=== PATIENT | male | born 1990 | race Caucasian/White ===

== ENCOUNTER 2019-12-07 14:47 | Outpatient (CLI) | payer BC, SELFPAY ==
--- NOTE | 2019-12-07 15:06 | ECHO_ITS ---
Patient Info Name: Doc Brambila Age: 29 years : 1990 Gender: Male Ht: 69 in Wt: 206 lbs BSA: 2.16 m2 HR: 70 bpm BP: 168 / 99 mmHg Technical Quality: Good Exam Date: 12/07/2019 3:12 PM Exam Location: [facility] Patient Status: Outpatient Admit Date: 12/07/2019 Staff Ordering Physician: Paty Salas NP Licensed [employer]al[employer] Supervisor: Doc Lovell RDCS Attending Provider: Paty Salas NP Referring Physician: Maritza TINEO; Exam Type: CA echo doppler color flow Study Info Indications I10 - Essential (primary) hypertension Complete two-dimensional, color flow and Doppler transthoracic echocardiogram is performed. Strain analysis performed. History/Risk Factors Hypertension. Summary 1. Left ventricular chamber dimension is normal. 2. Left ventricular systolic function is normal, estimated at 60-65%. 3. The left ventricular diastolic function is grade I diastolic dysfunction. 4. E/e' 5 is not elevated. 5. Global longitudinal strain is abnormal at -15.3%. 6. Left atrial chamber dimension is moderately enlarged. 7. No pulmonary hypertension, estimated pulmonary arterial systolic pressure is 26 mmHg. Left Ventricle E/e' 5 is not elevated. Global longitudinal strain is abnormal at -15.3%. Left ventricular chamber dimension is normal. Left ventricular systolic function is normal, estimated at 60-65%. The left ventricular diastolic function is grade I diastolic dysfunction. Right Ventricle Right ventricular chamber dimension is normal. Right ventricular systolic function is normal. Left Atria Left atrial chamber dimension is moderately enlarged. Right Atria Right atrial chamber dimension is normal. Aortic Valve The aortic valve is trileaflet. There is no aortic valve stenosis. There is no aortic valve regurgitation. Pulmonic Valve There is no pulmonic regurgitation. Mitral Valve There is no mitral valve stenosis. There is no mitral valve regurgitation. Tricuspid Valve There is no tricuspid valve regurgitation. No pulmonary hypertension, estimated pulmonary arterial systolic pressure is 26 mmHg. Pericardium/Pleural There is no pericardial effusion. Inferior Vena Cava Normal inferior vena cava with >50% collapse upon inspiration consistent with normal right atrial pressure, 5 mmHg. Aorta The aortic root size at the sinus of Valsalva is normal. Left Ventricular Outflow Tract Name Value Normal LVOT 2D LVOT Diameter 2.1 cm LVOT Doppler LVOT Peak Gradient 4 mmHg LVOT Mean Gradient 2 mmHg LVOT VTI 17 cm LVOT VTI/AV VTI Ratio 0.7 LVOT Stroke Volume 61 ml LVOT CO 4.3 l/min LVOT CI 2.0 l/min/m2 Mitral Valve Name Value Normal MV Doppler
== END 2019-12-07 14:48 | disposition home or self-care (01) ==
LOC: ANHCARD 14:50
PROVIDERS: PCP Internal Medicine; Visit Provider Nurse Practitioner
DX: I10 Essential (primary) hypertension (principal)
CPT/HCPCS: 93306